=== PATIENT | female | born 1970 | race Two or more races ===

== ENCOUNTER 2023-05-18 10:24 | Emergency (ER) | payer OTHER ==
[~2023-05-18] VITALS: Ht 154.9 cm; Wt 69.9 kg
[2023-05-18] MEDS ORDERED: DIETHYLPROPION75 MG PO (10:28)
[2023-05-18] MEDS ORDERED: DULOXETINE HCL60 MG PO (10:28)
[2023-05-18] MEDS ORDERED: SIMVASTATIN10 MG PO (10:29)
[2023-05-18] MEDS ORDERED: CANDESARTAN-HC1 EAC2 PO (10:29)
[2023-05-18] MEDS ORDERED: AMITRIPTYLINE H10 MG PO (10:29)
[2023-05-18] MEDS ORDERED: METOPROLOL SUCC50 MG PO (10:29)
== END 2023-05-18 17:31 | disposition home or self-care (01) ==
LOC: ER 10:24
DX: M25.531 Pain in right wrist (principal); M25.511 Pain in right shoulder; M54.50 Low back pain, unspecified; I10 Essential (primary) hypertension